=== PATIENT | male | born 1975 | race African-American/Black ===

== ENCOUNTER 2020-10-14 19:57 | Emergency (ER) | payer SELFPAY ==
[2020-10-14 20:22] VITALS: BP 150/94; PULSE 73; TEMP 97.9; BMI 28.2
== END 2020-10-14 22:46 | disposition home or self-care (01) ==
LOC: JERFT 19:57
DX: S10.15XA Superficial foreign body of throat, initial encounter (principal)
CPT/HCPCS: 70360-TC-FY; 99284-25